=== PATIENT | female | born 1945 | race Two or more races ===

== ENCOUNTER 2019-08-27 11:56 | Inpatient (IN) | payer MEDICAID ==
[~2019-08-27] VITALS: Ht 154.9 cm; Wt 76.7 kg
[2019-08-27] VITALS (8 sets, daily range): BP systolic 114–160; BP diastolic 56–92
[~2019-08-27 11:56] MED LIST: HEPARIN SODIUM 1,000 UNIT/1ML VIAL IV ONE; NICARDIPINE 100MCG/ML 10ML VIAL (CATH LAB) IV ONE; NITROGLYCERIN 50MCG/ML 10ML VIAL (CATH LAB) IV ONE
[2019-08-27] MEDS ORDERED: NITR0.4T SL (14:22)
[2019-08-27] MEDS ORDERED: METO100T9 MT (14:22)
[2019-08-27] MEDS ORDERED: INSU100I24 SQ (14:22)
[2019-08-27] MEDS ORDERED: APRE30TA2 PO (14:22)
[2019-08-27] MEDS ORDERED: CLOP75TA4 PO (14:22)
[2019-08-27] MEDS ORDERED: SITA1TBM7 PO (14:22)
[2019-08-27] MEDS ORDERED: TRIA1TAB92 PO (14:22)
[2019-08-27] MEDS ORDERED: FISH1CAP34 PO (14:22)
[2019-08-27] MEDS ORDERED: TOLT4CAP13 MT (14:22)
[2019-08-27] MEDS ORDERED: ALLO100T PO (14:22)
[2019-08-27] MEDS ORDERED: ASPI-864 MT (14:22)
[2019-08-27] MEDS ORDERED: HEPARIN SODIUM 1,000 UNIT/1ML VIAL IV ONE ×2 (15:21→16:00)
[2019-08-27] MEDS ORDERED: LIDOCAINE HCL 1% 20ML VIAL (Pyxis) INJ ONE (15:55)
[2019-08-27] MEDS ORDERED: IODIXANOL 320MG/ML 100 ML BOTTLE IV ONE (16:01)
[2019-08-27] MEDS ORDERED: FENTANYL CITRATE/PF 50MCG/ML 2ML VIAL ONE (16:30)
[2019-08-27] MEDS ORDERED: MIDAZOLAM HCL 2 MG/2 ML VIAL ONE ×2 (16:30→16:49)
[2019-08-27] MEDS ORDERED: IOHEXOL-300 100 ML BOTTLE ONE (16:58)
[2019-08-27] MEDS ORDERED: ASPIRIN 325MG EC TABLET PO ONE (17:10)
[2019-08-27] MEDS ORDERED: CLOPIDOGREL 75MG TABLET ONE ×2 (17:10→17:16)
[2019-08-27] MEDS ORDERED: DEXTROSE 50% WATER 50ML SYRINGE IV PRN (19:30)
[2019-08-27] MEDS ORDERED: NITROGLYCERIN 0.4MG TABLET SL SL PRN ×2 (19:30→19:45)
[2019-08-27] MEDS ORDERED: ACETAMINOPHEN 325MG TABLET PO PRN (19:30)
[2019-08-27] MEDS ORDERED: CLONIDINE 0.1MG TABLET PO PRN (19:30)
[2019-08-27] MEDS: BLOOD SUGAR DIAGNOSTIC STRIP TEST SCH (21:00)
[2019-08-27] MEDS: METOPROLOL TARTRATE 50MG TABLET PO SCH (21:00)
[2019-08-27] MEDS: INSULIN LISPRO 100 UNITS/ML SUBCUT SCH (21:49)
[2019-08-28] VITALS (7 sets, daily range): BP systolic 98–154; BP diastolic 46–78
[2019-08-28 06:43] LABS: BASOPHILS % 0.5 % (0.0-2.0); EOSINOPHILS % 2.5 % (0.0-5.0); HEMATOCRIT. 33.5 % (36.0-48.0); HEMOGLOBIN. 10.7 g/dL (12.0-16.0); LYMPHOCYTES % 28.8 % (20.0-50.0); MEAN CORPUSCULAR HEMOGLOBIN 25.4 pg (28.0-32.0); MEAN CORPUSCULAR VOLUME 79.3 fL (81.0-99.0); MONOCYTES % 11.4 % (2.0-8.0); NEUTROPHILS % 56.8 % (40.0-76.0); PLATELET 316 x1000/uL (130-400); RED BLOOD CELL COUNT 4.22 mill/uL (4.2-5.4)
[2019-08-28] MEDS: BLOOD SUGAR DIAGNOSTIC STRIP TEST SCH (06:44)
[2019-08-28] MEDS: INSULIN LISPRO 100 UNITS/ML SUBCUT SCH (06:55)
[2019-08-28] MEDS: METOPROLOL TARTRATE 50MG TABLET PO SCH (08:38)
[2019-08-28] MEDS ORDERED: ALLOPURINOL 100 MG TABLET PO SCH (09:00)
[2019-08-28] MEDS ORDERED: TRIAMTERENE/HYDROCHLOROTHIAZID 75/50MG TABLET PO SCH (09:00)
[2019-08-28] MEDS ORDERED: CLOPIDOGREL 75MG TABLET PO SCH (09:00)
== END 2019-08-28 10:45 | disposition home or self-care (01) | DRG 175 ==
LOC: CCL 11:56 → 3WST 18:52
PROVIDERS: ADMIT Specialist; ATTEND Specialist
PROC: 02703ZZ Dilation of Coronary Artery, One Artery, Percutaneous Approach (ICD-10-PCS; principal; 2019-08-27)
PROC: 4A023N7 Measurement of Cardiac Sampling and Pressure, Left Heart, Percutaneous Approach (ICD-10-PCS; 2019-08-27)
PROC: B211YZZ Fluoroscopy of Multiple Coronary Arteries using Other Contrast (ICD-10-PCS; 2019-08-27)
PROC: 4A033BC Measurement of Arterial Pressure, Coronary, Percutaneous Approach (ICD-10-PCS; 2019-08-27)
DX: I25.110 Atherosclerotic heart disease of native coronary artery with unstable angina pectoris (principal); E87.5 Hyperkalemia; D63.8 Anemia in other chronic diseases classified elsewhere; I11.9 Hypertensive heart disease without heart failure; E78.5 Hyperlipidemia, unspecified; E11.9 Type 2 diabetes mellitus without complications; N28.9 Disorder of kidney and ureter, unspecified; Z79.02 Long term (current) use of antithrombotics/antiplatelets; Z79.82 Long term (current) use of aspirin; Z82.49 Family history of ischemic heart disease and other diseases of the circulatory system; Z85.3 Personal history of malignant neoplasm of breast
CPT/HCPCS: 36415; 80048; 82962; 85025; 85347; 92920; 93005; 93458; 93571; C1769; C1887; C1893; J1644; J1815; J2250; J3010; J3490; Q9967